=== PATIENT | male | born 1940 | race Caucasian/White ===

== ENCOUNTER 2017-06-15 11:01 | Outpatient (CLI) | payer MEDICARE, OTHER ==
[~2017-06-15] VITALS: Ht 170.2 cm; Wt 88.6 kg
--- NOTE | ~2017-06-15 | OP ---
PATIENT NAME: FRANCIA CESPEDES MEDICAL RECORD: [id number] :42 LOCATION:[facility] ADMISSION DATE: SURGEON: HLEEN OSMAN MD DATE OF OPERATION: 06/15/2017 PROCEDURE: Left heart catheterization, selective coronary angiography, right femoral artery approach. CATHETERS: A 5-Citizen [place] sheath, 5/4 left and right Nicholas, 5/4 pig. The procedure was well tolerated. The patient returned to love, sheath removed. ExoSeal device placed. FINDINGS: Left ventriculography in 30-degree HOFFMAN view: Normal wall motion, normal systolic function. CORONARY ANATOMY: LEFT MAIN: Left main is free of disease. LAD: Free of disease. Area of previously placed stenting is widely patent. CIRCUMFLEX: Free of disease. RIGHT CORONARY ARTERY: Dominant artery, gives rise to PDA. Distally, the PDA itself has about a 50% stenosis. IMPRESSION: Widely patent stent, no significant progression of cher-ae heights disease, risk factor modification. TRANSINT:[id number] Voice Confirmation ID: [id number] DOCUMENT ID: [id number] HELEN OSMAN MD at 1325 CC: [id number] DICTATION DATE: 06/15/17 1409 CONTACT CLERK: 06/15/17 1425 DEP CLI 06/15/17 [id number] [place] [address]
--- NOTE | ~2017-06-15 | HEMODYNAMI ---
PATIENT:FRANCIA CESPEDES MEDICAL RECORD: [id number] : 44 LOCATION:[facility] ADMISSION DATE: 06/15/17 Generatedon:06/15/201714:05 Patient name: FRANCIA CESPEDES Patient #: [id number] SSN: : 1940 Date of study: 06/15/2017 Page: Of Hemodynamic Procedure Report Patient Data Patient Demographics Procedure consent was obtained First Name: FRANCIA Gender: Male Last Name: COY : 1940 Middle Initial: G Age: 76 year(s) Patient #: [id number] Race: Additional ID: [id number] Contact details Address: [address] [place] [address] ROAD State: [place] City: [place] Zip code: [address] Past Medical History Allergies: No known allergies Admission Admission Data Admission Date: 06/15/2017 Admission Time: 11:01 Procedure Procedure Types Cath Procedure Diagnostic Procedure C C w/Coronaries Procedure Description Procedure Date Procedure Date: 06/15/2017 Procedure Start Time: 13:51 Procedure End Time: 14:04 Procedure Staff Name Function Humberto Panchal MD Performing Physician Kristie Urrutia RT Monitor Larry Caballero RN Nurse Nichol Gonzalez RT Scrub Procedure Data Cath Procedure Fluoroscopy Diagnostic fluoroscopy Total fluoroscopy Time: 1.5 time: 1.5 min min Diagnostic fluoroscopy Total fluoroscopy dose: 705 dose: 705 mGy mGy Contrast Material Contrast Material Type Amount (ml) Isovue 300 72 Entry Location Entry Primary Successful Side Size Upsize Upsize Entry Closure Succes sful Closure Location (Fr) 1 (Fr) 2 (Fr) Remarks Device Remarks Femoral Right 5 Fr Exoseal artery Estimated blood loss: 5 ml Diagnostic catheters Device Type Used For End Catheter Placement MULTIPACK JL 4.0 5Fr Left Coronary catheter Angiography MULTIPACK 3DRC 5Fr Right Coronary catheter Angiography MULTIPACK Pigtail 5 Fr LV Angiography catheter Procedure Complications No complications Procedure Medications Medication Administration Route Dosage 0.9% NaCl I.V. 100 ml/hr Oxygen etCO2 Nasal cannula 2 l/min Heparin Flush Bag added to field 2 bags (1000units/500ml NS) Lidocaine 2% added to field 20 Versed I.V. 1 mg Fentanyl I.V. 50 mcg Versed I.V. 1 mg Fentanyl I.V. 50 mcg Hemodynamics Rest Heart Rate: 57 (bpm) Pressure Samples Time Site Value (mmHg) Purpose Heart Use Rate(bpm) 13:59 LV 158/27,29 EDP 82 13:59 AO 147/82(109) Pullback 67 13:59 LV 126/16,14 Pullback 67 Gradients Valve Time Site 1 Site 2 Mean SEP/DFP Peak To Heart Use (mmHg) (sec/min) Peak Rate (mmHg) (bpm) Aortic 13:59 LV AO 0 1 0 67 126/16,14 147/82(109) Calculations Valve P-P Mean Valve Index Valve Source Name Gradient Area Flow (cm2) Aortic 0 0 0 0 Snapshots Pre Cath Intra NCS Post Cath Vital Signs Time Heart Resp SPO2 etCO2 NIBP (mmHg) Rhythm Pain Sedation Rate (ipm) (%) (mmHg) Status Level (bpm) 13:47:02 59 16 100 36.1 149/80(127) NSR 0 (11) 10(A) , No pain 13:51:47 59 13 95 41.4 134/79(109) NSR 0 (11) 10(A) , No pain 13:57:08 69 15 95 28.6 146/83(128) NSR 0 (11) 9(A) , No pain 14:01:53 69 13 0 143/72(124) NSR 0 (11) 9(A) , No pain Medications Time Medication Route Dose Verified Delivered Reason Notes Eff ectiveness by by 13:46:43 0.9% NaCl I.V. 100 Larry Larry Per ml/hr Ada Caballero physician RN RN 13:46:54 Oxygen etCO2 2 Larry Larry Per Nasal l/min Ada Caballero physician cannula RN RN 13:47:05 Heparin Flush added 2 Larry Larry used for Bag to bags Lorigan Selmaigan procedure (1000units/500ml field RN RN NS) 13:47:22 Lidocaine 2% added 20ml Larry Larry for local to vial Lorigan Lorigan anesthetic field RN RN 13:48:51 Versed I.V. 1 mg Larry Larry for Lorigan Lorigan sedation RN RN 13:49:02 Fentanyl I.V. 50 Larry Larry for mcg Lorigan Lorigan sedation RN RN 13:53:19 Versed I.V. 1 mg Larry Larry for Lorigan Lorigan sedation RN RN 13:53:24 Fentanyl I.V. 50 Larry Larry for mcg Lorigan Lorigan sedation RN quarter folder Log Time Note 13:29:54 Time tracking: Regular hours 13:29:57 Plan of Care:Hemodynamics will remain stable., Cardiac rhythm will remain stable., Comfort level will be maintained., Respiratory function will remain adequate., Patient/ family verbilizes understanding of procedure., Procedure tolerated without complication., Recovers from procedure without complications.. 13:30:00 Larry Caballero RN sent for patient. Start room use. 13:31:11 Patient diabetic? Yes. 13:31:12 If diabetic: On Metformin? Yes 13:31:14 If on Metformin: Last Dose? 06/13/2017 13:31:19 Is patient on blood thinner?No 13:31:30 H&P Date Dictated: 05/30/2017 Within 30 days and on chart., H&P Addendum completed by physician on day of procedure. (MUST COMPLETE FOR ALL OUTPATIENTS). 13:36:52 Patient received from Pre/Post Procedure Room to CCL 1 Alert and oriented. Tansferred to table in Supine position. 13:36:54 Warm blankets applied, and raul hugger turned on for patient comfort. 13:36:54 Correct patient and procedure confirmed by team. 13:36:57 Signed procedure consent form obtained from patient. 13:36:59 ECG and BP/O2 sat monitors applied to patient. 13:37:02 Full Disclosure recording started 13:46:02 Vital chart was started 13:46:04 Rhythm: sinus bradycardia 13:46:15 Pre-procedure instructions explained to patient. 13:46:15 Pre-op teaching completed and patient verbalized understanding. 13:46:18 Family in patients room. 13:46:19 Patient NPO since Midnight. 13:46:27 Patient allergic to No known allergies 13:46:31 Previous problem with sedation/anesthesia? No ? 13:46:32 Snore? Yes 13:46:33 Sleep apnea? No 13:46:35 Deviated septum? No 13:46:36 Opens mouth fully? Yes 13:46:37 Sticks out tongue? Yes 13:46:38 Airway obstruction? No ? 13:46:40 Dentures? Yes IN 13:46:43 0.9% NaCl 100 ml/hr I.V. was administered by Larry Caballero RN; Per physician; 13:46:53 Pre procedure: right dorsailis pedis pulse 2+ Normal; easily identifiable; not easily obliterated 13:46:54 Oxygen 2 l/min etCO2 Nasal cannula was administered by Larry Caballero RN; Per physician; 13:46:55 Patient pain scale 0/10 ?. 13:47:02 IV patent on arrival in left hand with 0.9% NaCl at [facility]. 13:47:05 Heparin Flush Bag (1000units/500ml NS) 2 bags added to field was administered by Larry Caballero RN; used for procedure; 13:47:05 Lab results completed and on chart. 13:47:11 Right groin area was prepped with chlora-prep and draped in sterile fashion 13:47:12 Alarms reviewed by R. N. 13:47:12 Sharps counted by scrub and verified by R.N. 13:47:22 Lidocaine 2% 20ml vial added to field was administered by Larry Caballero RN; for local anesthetic; 13:47:38 Use device set Femoral Dx 13:47:41 ACIST Syringe (86467) opened to sterile field. 13:47:41 Bag Decanter (2001S) opened to sterile field. 13:47:42 Medline Cath Pack ([id number]) opened to sterile field. 13:47:43 DIAGNOSTIC WIRE .035 260cm J wire (892226) opened to sterile field. 13:47:44 ACIST Hand Control (06583) opened to sterile field. 13:47:45 ACIST Manifold (13888) opened to sterile field. 13:47:45 DIAGNOSTIC Multipack 5Fr catheter set (DB7522) opened to sterile field. 13:47:46 Tegaderm 4 x 4 (1626W) opened to sterile field. 13:47:47 PERCUTANEOUS ENTRY 19GA needle opened to sterile field. 13:48:13 Final Timeout: patient, procedure, and site verified with staff and physician. All members of the team are in agreement. 13:48:15 Right groin site verified by team. 13:48:17 Physical assessment completed. ASA score P 2 - A patient with mild systemic disease as per Humberto Panchal MD. 13:48:20 Sedation plan: IV Moderate Sedation Medication:Versed, Fentanyl 13:48:51 Versed 1 mg I.V. was administered by Larry Caballero RN; for sedation; 13:49:02 Fentanyl 50 mcg I.V. was administered by Larry Caballero RN; for sedation; 13:49:49 Baseline sample Acquired. 13:51:28 Procedure started. 13:51:31 Local anesthetic to right femoral artery with Lidocaine 2% by Humberto Panchal MD.INITIAL ACCESS ONLY 13:51:39 A 5 Fr sheath was inserted into the Right Femoral artery 13:52:07 SHEATH Prelude 5Fr 0.035 (JNT-7D-49-035) opened to sterile field. 13:52:56 A MULTIPACK JL 4.0 5Fr catheter was advanced over the wire and used for Left Coronary Angiography. 13:53:19 Versed 1 mg I.V. was administered by Larry Caballero RN; for sedation; 13:53:24 Fentanyl 50 mcg I.V. was administered by Larry Caballero RN; for sedation; 13:55:40 Catheter removed. 13:56:50 A MULTIPACK 3DRC 5Fr catheter was advanced over the wire and used for Right Coronary Angiography. 13:57:26 Catheter removed. 13:57:32 A MULTIPACK Pigtail 5 Fr catheter was advanced over the wire and used for LV Angiography. 13:59:16 LV gram done using HOFFMAN 13:59:17 LV hemodynamics recorded. 13:59:22 Injector settings: Ml/sec: 10, Volume: 20, 13:59:40 Catheter removed. 14:00:41 Sheath removed intact; hemostasis achieved with Exoseal to the Right Femoral artery. 14:00:43 Procedure ended.(Physican Out) 14:00:54 Fluoroscopy time 01.50 minutes. 14:02:01 Fluoroscopy dose: 705 mGy 14:02:01 Flurop Dose total: 705 14:02:04 Contrast amount:Isovue 300 72ml. 14:02:27 Sharps counted by scrub and verified by R.N. 14:02:28 Insertion/operative site no bleeding no hematoma. 14:02:31 Post-op/insertion site Right Femoral artery dressed using a 4 x 4 and Tegaderm. 14:02:34 Post right femoral artery:stable, clean and dry 14:02:37 Post Procedure Pulses reassessed and unchanged 14:02:42 Post-procedure physical assessment completed. ASA score P 2 - A patient with mild systemic disease as per Humberto Panchal MD. 14:02:44 Post procedure rhythm: unchanged. 14:02:47 Estimated blood loss: 5 ml 14:02:48 Post procedure instruction explained to patient.Patient verbalizes understanding. 14:02:49 Patient needs reinforcement of post procedure teaching. 14:03:13 Procedure Complication : No complications 14:03:16 See physician's report for complete and final results. 14:03:48 EXOSEAL 5Fr (EX500) opened to sterile field. 14:04:02 Procedure and supply charges have been captured, reviewed, submitted and are correct. 14:04:29 Vital chart was stopped 14:04:35 Report given to Pre/Post Procedure Room. 14:04:38 Patient transfered to Pre/Post Procedure Room with Stretcher. 14:04:46 End room use (Document Last) 14:04:49 Procedure ended. 14:04:49 Full Disclosure recording stopped Device Usage Item Name Manufacture Quantity Catalog Number Hospital Part Current M inimal Lot# / Charge Number Stock Stock Serial# Code ACIST Syringe Acist 1 42994 738175 066826 790034 2 0 (48822) [employer] Bag Decanter Microtek 1 190727 31797 056282 5 () Medical Inc. Medline Cath Cardinal 1 [id number] 522489 41298 815182 5 Pack Health ([id number]) DIAGNOSTIC WIRE St Sunday 1 956038 467496 740942 397130 3 0 .035 260cm J wire (968508) ACIST Hand Acist 1 16475 303872 447669 642007 5 Control (49416) [employer] ACIST Manifold Acist 1 94585 536347 605566 864741 5 (18158) [employer] DIAGNOSTIC Cardinal 1 [id number] 412106 60066 499865 3 0 Multipack 5Fr Health catheter set (TF0474) Tegaderm 4 x 4 3M 1 1626W 320590 406573 546883 5 (1626W) PERCUTANEOUS Cook Medical 1 W75109 525659 218133 5 ENTRY 19GA needle SHEATH Prelude Merit 1 UNC-3O-47-035 732815 518625 901076 5 5Fr 0.035 Medical (KPM-3H-33-035) MULTIPACK JL Cardinal 1 383831 5 4.0 5Fr Health catheter MULTIPACK 3DRC Cardinal 1 907002 5 5Fr catheter Health MULTIPACK Cardinal 1 673155 5 Pigtail 5 Fr Health catheter EXOSEAL 5Fr Cardinal 1 EX500 382562 292981 827555 1 0 (EX500) Health Signature Audit Desmet Stage Time Signature Unsigned Intra-Procedure 06/15/2017 Kristie 2:05:02 PM Counts RT(R) Signatures Monitor : Kristie Signature : Counts RT Date : Time : [address] [address]
[~2017-06-15 11:01] MED LIST: AMBIEN10 MG PO; ASPIRIN EC81 M1 PO; AZOR 10-40 MG T1 TAB PO; COREG12.5 MG PO; EFFEXOR75 MG PO; FISH OIL 1,2001 CAP PO; GLUCOPHAGE500 MG PO; K-TAB10 MEQ PO; LIPITOR20 MG PO; LOZOL 2.5 MG T2.5 MG PO; MULTIPLE VITAMI1 TA1 PO
[2017-06-15] MEDS ORDERED: CRESTOR5 MG PO (11:53)
[2017-06-15 12:00] VITALS: BP 152/75; Ht 170.2 cm; Wt 88.6 kg
[2017-06-15 12:42] LABS: BASOPHILS 0.2 % (0-2); HEMATOCRIT 44.7 % (42.0-54.0); HEMOGLOBIN 15.4 g/dL (13.5-17.5); IMMATURE GRANULOCYTES 0.2 % (0-5); LYMPHOCYTES 15.3 % (15-50); MCH 30.7 pg (26.0-34.0); MCHC 34.5 g/dL (31.0-37.0); MCV 89.2 fL (80.0-100.0); MEAN PLATELET VOLUME 10.6 fL (7.4-10.4); MONOCYTES 10.4 % (2-11); NEUTROPHILS 70.9 % (40-80); PLATELET COUNT 213 10x3/uL (130-400); RBC 5.01 10x6/uL (4.20-6.10)
[2017-06-15 12:54] LABS: ANION GAP 14.4 mmol/L (8-16); CALCIUM 8.9 mg/dL (8.5-10.1); CREATININE - SERUM 1.1 mg/dL (0.6-1.3); POTASSIUM - SERUM 3.4 mmol/L (3.5-5.1)
== END 2017-06-15 16:15 | disposition home or self-care (01) ==
LOC: D.CATH 11:01
PROVIDERS: Internal Medicine Interventional Cardiology
DX: I25.10 Atherosclerotic heart disease of native coronary artery without angina pectoris (principal); R94.39 Abnormal result of other cardiovascular function study; Z01.812 Encounter for preprocedural laboratory examination

== ENCOUNTER → 2019-05-02 09:40 | Outpatient (CLI) | payer MEDICARE, OTHER ==
[2017-06-15 12:00] VITALS: BMI 30.6
--- NOTE | ~2019-05-02 | EC ---
PATIENT:FRANCIA CESEPDES DATE OF SERVICE: 05/02/19 SEX: M MEDICAL RECORD: [id number] DATE OF : 44 LOCATION:D.[facility] AGE OF PATIENT: 78 ADMISSION DATE: 05/02/19 REFERRING PHYSICIAN: INTERPRETING PHYSICIAN: HELEN OSMAN MD ECHOCARDIOGRAM REPORT ECHO CHARGES 4 ECHO COMPLETE Date: 05/02/19 CLINICAL DIAGNOSIS: CAD HX OF AI/TR ECHOCARDIOGRAPHIC MEASUREMENTS (adult normal given) AC root (d.<3.7cm) 3.5 cm LV Septum d (<1.2 cm> 1.3 cm Valve Excursion 1.9 cm LV Septum (systole) 1.4 cm Left Atria (s.<4.0cm> 3.4 cm LVPW d(<1.2cm) 1.5 cm RV (d.<2.3cm) 4.4 cm LVPW (sytole) 2.1 cm LV diastole(<5.6CM) 5.4 cm MV E-F(>70mm/sec) cm LV systole 3.0 cm LVOT Diameter 1.8 cm MV exc.(>10mm) 1.7 cm Est.ejection fraction (50-75%) % DOPPLER: LVIT cm/sec A 89.0 cm/sec E 101.0 cm/sec LA cm/sec RVSP 26 mmHg LVOT 115 cm/sec AOP1/2T m/s Asc. Ao 181 cm/sec RVOT 87 cm/sec RA cm/sec PA 110 cm/sec AV Gradient Peak 13.03mmHg AV Mean 7.58 mmHg AV Area 1.4 cm MV Gradient Peak 3.56 mmHg MV Mean 1.53 mmHg MV Area cm COMMENTS: Deckhand Clam Dredge: 2 KESHIA MITCHELL Industrial Safety And Health Manager: 3 Dr. Mabry TAPE# PACS Pericardial Effusion N DATE OF SERVICE: Adequate 2D, color flow imaging, spectral Doppler, and M-Mode. Borderline LVH. LV internal dimension is normal. Wall motion is normal. EF is greater than or equal to 55%. Aortic valve is tricuspid. No evidence of stenosis by Doppler interrogation. Left atrium is normal at 3.4 cm. Mitral valve shows no prolapse. Trace MR. Right-sided chambers grossly normal. Trace TR. ECHOCARDIOGRAM REPORT [id number] FRANCIA CESPEDES TRANSINT:[id number] Voice Confirmation ID: [id number] DOCUMENT ID: [id number] HELEN OSMAN MD CC: [id number] DICTATION DATE: 05/02/19 1556 CHILDBIRTH EDUCATOR: 05/02/19 [id number] [place] [id number]
[~2019-05-02 09:40] MED LIST changes: +CRESTOR5 MG PO
== END | disposition home or self-care (01) ==
LOC: D.HCCECHO 09:40
PROVIDERS: ATTEND Internal Medicine Interventional Cardiology
DX: I25.10 Atherosclerotic heart disease of native coronary artery without angina pectoris (principal)